=== PATIENT | male | born 1955 | race Caucasian/White ===

== ENCOUNTER 2017-05-25 22:54 | Emergency (ER) | payer OTHER ==
[~2017-05-25] VITALS: Ht 175.3 cm; Wt 74.8 kg
[2017-05-26 01:04] VITALS: BP 136/80
== END 2017-05-26 01:05 | disposition home or self-care (01) ==
LOC: EME 22:54
DX: L23.7 Allergic contact dermatitis due to plants, except food (principal)
CPT/HCPCS: 99281; 99283

== ENCOUNTER → 2017-12-11 | Outpatient (CLI) | payer OTHER | END | disposition home or self-care (01) | LOC: CDC 11:37 | DX: Z01.810 Encounter for preprocedural cardiovascular examination (principal); I45.10 Unspecified right bundle-branch block | CPT/HCPCS: 93000 ==

== ENCOUNTER 2017-12-27 05:01 | Day surgery (SDC) | payer OTHER ==
[~2017-12-27] VITALS: Ht 175.3 cm; Wt 74.8 kg
[~2017-12-27 05:01] MED LIST: CENTRUM COMPLE1 EACH PO; HYDROCHLOROTHIA25 MG PO; IRON325 M1 PO; LO-DOSE ASPIRIN81 M1 PO; NEXIUM40 MG PO; NORVASC5 MG PO; ZESTRIL40 MG PO
[2017-12-27 06:20] VITALS: BP 137/95
[2017-12-27 06:26] VITALS: BP 137/95
[2017-12-27 06:31] LABS: APPEARANCE CLEAR ((CLEAR)); BILIRUBIN NEGATIVE; BLOOD SMALL; COLOR YELLOW ((YELLOW)); GLUCOSE (STRIP) NEGATIVE; KETONES NEGATIVE; LEUKOCYTES NEGATIVE; NITRITE NEGATIVE; PROTEIN (STRIP) NEGATIVE; SPECIFIC GRAVITY 1.023 (1.000-1.030); UROBILINOGEN 0.2 MG/DL (0.2-1.0)
[2017-12-27 06:57] LABS: BACTERIA NONE SEEN /HPF; CALCIUM OXALATE CRYSTALS 4+ /HPF; EPITHELIAL CELLS NONE SEEN /HPF; MUCUS TRACE /LPF; RED BLOOD CELLS 0-5 /HPF (0-5); UCUL ADDED? NO; WHITE BLOOD CELLS 0-5 /HPF (0-5)
[2017-12-27 11:42] VITALS: BP 110/67
[2017-12-27 12:51] VITALS: BP 122/77
[2017-12-27 14:35] VITALS: BP 106/62
[2017-12-27 18:10] VITALS: BP 123/70
== END 2017-12-27 18:40 | disposition home or self-care (01) ==
LOC: SDC 05:01
PROVIDERS: Orthopaedic Surgery
DX: M16.11 Unilateral primary osteoarthritis, right hip (principal); I10 Essential (primary) hypertension; E78.00 Pure hypercholesterolemia, unspecified; K21.9 Gastro-esophageal reflux disease without esophagitis; I45.10 Unspecified right bundle-branch block
CPT/HCPCS: 73501; 81003; C1713; J0131; J0690; J1100; J1170; J2250; J2405; J3010; J3475; J7050

== ENCOUNTER 2018-01-03 21:42 | Emergency (ER) | payer OTHER ==
[~2018-01-03] VITALS: Ht 175.3 cm; Wt 75.0 kg
[2018-01-04 00:06] VITALS: BP 152/89
== END 2018-01-04 00:07 | disposition home or self-care (01) ==
LOC: EME 21:42
DX: K59.00 Constipation, unspecified (principal); Z98.890 Other specified postprocedural states; Z96.641 Presence of right artificial hip joint; Z79.82 Long term (current) use of aspirin; Z88.8 Allergy status to other drugs, medicaments and biological substances
CPT/HCPCS: 74019